=== PATIENT | male | born 1980 | race Two or more races ===

== ENCOUNTER 2022-09-22 17:58 | Emergency (ER) | payer OTHER ==
[~2022-09-22] VITALS: Ht 172.7 cm; Wt 86.2 kg
== END 2022-09-23 00:33 | disposition home or self-care (01) ==
LOC: ER 17:58
DX: K62.5 Hemorrhage of anus and rectum (principal)

== ENCOUNTER 2022-10-17 06:41 | Day surgery (SDC) | payer OTHER ==
[~2022-10-17] VITALS: Ht 172.7 cm; Wt 84.8 kg
[2022-10-17] MEDS ORDERED: OXYC1TAB9 PO (11:59)
== END 2022-10-17 17:55 | disposition home or self-care (01) ==
LOC: CIR.AMB 06:41
PROVIDERS: ATTEND Surgery
DX: K62.5 Hemorrhage of anus and rectum (principal); K64.8 Other hemorrhoids; K64.4 Residual hemorrhoidal skin tags; K62.89 Other specified diseases of anus and rectum; Z20.822 Contact with and (suspected) exposure to COVID-19